=== PATIENT | female | born 1945 | race Caucasian/White ===

== ENCOUNTER 2020-09-01 08:14 | Emergency (ER) | payer MEDICARE, SELFPAY ==
[2020-09-01 08:22] VITALS: BP 160/64; PULSE 80; RESP 20; TEMP 36.7; O2SAT 99
--- NOTE | 2020-09-01 08:31 | ED.URI ---
HPI - URI/Sore Throat General Chief Complaint: Upper Respiratory Infection Stated Complaint: Sinus Time Seen by Provider: 09/01/20 08:31 Source: patient and RN notes reviewed Mode of arrival: ambulatory Limitations: no limitations History of Present Illness HPI Narrative: 75 year old female presents to [facility] care with complaints of 3 week duration of sinus congestion, pressure to face, frontal headache,rhinorrhea and ear pressure. Patient states that she has been taking Sinex and Tylenol for her symptoms with no resolution. Patient denies any known fevers or chills, states no cough or shortness of breath with respirations even and nonlabored and lungs clear to auscultation. MD elicited complaint: rhinorrhea, nasal congestion and sinus pain Onset (ago): week(s) (3) Consistency: constant Severity: moderate Pain scale (0-10): 6 Description of mucous: clear Able to tolerate fluids by mouth: Yes Relieving factors: nothing Associated symptoms: rhinorrhea, nasal congestion and ear pain Treatments prior to arrival: cold medicine Related Data Home Medications Medication Instructions Recorded Confirmed furosemide 40 mg PO DAILY 09/01/20 09/01/20 lisinopril 20 mg PO DAILY 09/01/20 09/01/20 Allergies Allergy/AdvReac Type Severity Reaction Status Date / Time No Known Drug Allergies Allergy Unknown Unknown Verified 09/01/20 08:33 Review of Systems Review of Systems: Narrative: CONSTITUTIONAL: Denies fever, chills, or sweats. EYES: Denies visual changes, redness, or discharge. ENT: Positive rhinorrhea, congestion, no sore throat, positive right otalgia, positive for sinus pressure R>L CARDIOVASCULAR: Denies chest pain, palpitations, or edema. RESPIRATORY: Denies cough or dyspnea. GASTROINTESTINAL: Denies abdominal pain, nausea, vomiting, or diarrhea. GENITOURINARY: Denies dysuria or hematuria. SKIN: Denies rash or itching. MUSCULOSKELETAL: Denies back pain, joint pain, or myalgia. NEUROLOGIC: positive right frontal headache, no numbness, or weakness. PSYCHIATRIC: Denies anxiety or depression. All systems reviewed & are unremarkable except as noted in HPI and below PMFSH Past Medical History Medical History (Updated 09/01/20 @ 08:51 by Hilaria Kimball NP) Arthritis Hypertension Surgical History Surgical History (Updated 09/01/20 @ 08:51 by Hilaria Kimball NP) History of appendectomy History of bilateral knee replacement History of gastric bypass Hx of cholecystectomy Family History Family History (Updated 09/01/20 @ 10:45 by Hilaria Kimball NP) Mother Breast cancer Social History Social History (Updated 09/01/20 @ 08:52 by Hilaria Kimball NP) Smoking status: Never smoker Substance use: never Living arrangements: with family Gender identity (if verbalized by the patient): Female Comments At time of signature, agree with nursing past medical, surgical, social and family history. There is no relevant family history pertinent to the presenting complaint Exam Narrative: Exam Narrative: GENERAL: Well-appearing, well-nourished, and in no acute distress. HEAD: Normocephalic, atraumatic. EYES: PERRLA and EOMI. ENT: Nares red and turbinates swollen R>L, clear rhinorrhea no epistaxis. frontal headache and pressure to right side of face and bilateral ears. Mucous membranes moist.TM's normal with adequate light reflex, throat red with no tonsil enlargement or lesions, post nasal drainage noted to back of throat. NECK: Supple, no lymphadenopathy CHEST: Clear to auscultation. No respiratory distress.SAO2 99% on room air. HEART: Regular rate and rhythm. No murmur heard. Normal peripheral pulses. ABDOMEN: Soft, nontender, nondistended, normal active bowel sounds. EXTREMITIES: Normal range of motion. No edema. SKIN: Warm, dry, no rash. NEURO: No focal deficits. Alert and oriented x3. Course Vital Signs Vital signs: Vital Signs Temperature 36.7 C 09/01/20 08:22 Pulse Rate 80 09/01/20 08:22
== END 2020-09-01 08:55 | disposition home or self-care (01) ==
PROVIDERS: Emergency Provider Registered Nurse; PCP Internal Medicine
DX: J32.9 Chronic sinusitis, unspecified (principal); Z96.653 Presence of artificial knee joint, bilateral; Z98.84 Bariatric surgery status; M19.90 Unspecified osteoarthritis, unspecified site; I10 Essential (primary) hypertension
CPT/HCPCS: 99213; G0463

== ENCOUNTER 2021-03-16 08:05 | Emergency (ER) | payer MEDICARE, SELFPAY ==
--- NOTE | 2021-03-16 08:07 | ED.SKABFB ---
HPI - Skin/Abscess/Foreign Bdy General Chief complaint: Skin/Abscess/Foreign Body Stated complaint: rash Time Seen by Provider: 03/16/21 08:07 Source: patient and RN notes reviewed History of Present Illness HPI narrative: Patient is a 76-year-old female who presents the urgent care with complaints of poison gurmeet to the right arm, left arm and left leg. Patient states that she was pulling weeds yesterday and believes that she had may have came in contact with something then. Patient states that she has been using [id number] clear cream and Benadryl without any relief for 1 day. Patient states that it typically travels all over her body if she does not get a steroid . Patient did not call her doctor. No other acute complaints. No acute distress noted. Patient aware of the plan of care. Some parts of this dictation were generated by voice recognition software and may contain typographical and/or grammatical inaccuracies. Related Data Home Medications Medication Instructions Recorded Confirmed furosemide 40 mg PO DAILY 09/01/20 03/16/21 lisinopril 20 mg PO DAILY 09/01/20 03/16/21 Allergies Allergy/AdvReac Type Severity Reaction Status Date / Time No Known Drug Allergies Allergy Unknown Unknown Verified 09/01/20 08:33 Review of Systems Review of Systems: Narrative: CONSTITUTIONAL: Denies fever, chills, or sweats. EYES: Denies visual changes, redness, or discharge. ENT: Denies rhinorrhea, congestion, sore throat, or otalgia. CARDIOVASCULAR: Denies chest pain, palpitations, or edema. RESPIRATORY: Denies cough or dyspnea. GASTROINTESTINAL: Denies abdominal pain, nausea, vomiting, or diarrhea. GENITOURINARY: Denies dysuria or hematuria. SKIN: Reports of itchy burning rash to right upper arm, left lower arm and left thigh MUSCULOSKELETAL: Denies back pain, joint pain, or myalgia. NEUROLOGIC: Denies headache, numbness, or weakness. All other systems reviewed are negative, except as documented in HPI. [facility] Past Medical History Medical History (Updated 03/16/21 @ 08:25 by HAYLEE Rodriguez) Arthritis Hypertension Surgical History Surgical History (Updated 09/01/20 @ 08:51 by Hilaria Kimball NP) History of appendectomy History of bilateral knee replacement History of gastric bypass Hx of cholecystectomy Family History Family History (Updated 09/01/20 @ 10:45 by Hilaria Kimball NP) Mother Breast cancer Social History Social History (Updated 09/01/20 @ 08:52 by Hilaria Kimball NP) Smoking status: Never smoker Substance use: never Gender identity (if verbalized by the patient): Female Comments At the time of my signature, I reviewed and agree with the nursing past medical, surgical, social, and family history. There is no relevant family history pertinent to the patient complaint. Exam Narrative: Exam Narrative: GENERAL: This is a well-nourished, well-developed patient, in no apparent distress. HEAD: normocephalic, atraumatic. EYES: PERRL. Sclera clear/white. Vision is grossly intact. EARS: External ears normal NOSE: External nose normal with no obvious nasal discharge, nares without redness, no rhinorrhea. THROAT: Mucous membranes moist NECK: Neck supple CARDIOVASCULAR: Regular rate and rhythm without murmurs, gallops, or rubs. RESPIRATORY: Clear to auscultation. Breath sounds equal bilaterally. No wheezes, rales, or rhonchi. GASTROINTESTINAL: Abdomen soft, non-tender, nondistended. Bowel sounds are active. No hepato-splenomegaly, or palpable masses. No guarding. SKIN: Scattered clusters of pruritic vesicular dermatitis noted to the right upper arm, left lower arm and left thigh NEURO: awake, alert, and oriented to person, place and time. There were no obvious focal neurologic abnormalities. EXTREMITIES: No clubbing, cyanosis, or edema. Course Vital Signs Vital signs: Vital Signs Temperature 98.5 F 03/16/21 08:18 Pulse Rate 79 03/16/21 08:18 Respiratory Rate 18
[2021-03-16 08:18] VITALS: BP 163/62; PULSE 79; RESP 18; TEMP 36.9; O2SAT 100
== END 2021-03-16 08:42 | disposition home or self-care (01) ==
PROVIDERS: Emergency Provider Nurse Practitioner Family; PCP Internal Medicine
DX: L23.7 Allergic contact dermatitis due to plants, except food (principal); M19.90 Unspecified osteoarthritis, unspecified site; I10 Essential (primary) hypertension; Z96.653 Presence of artificial knee joint, bilateral; Z98.84 Bariatric surgery status
CPT/HCPCS: 99212; 99213; G0463

== ENCOUNTER 2023-09-21 08:17 | Emergency (ER) | payer MEDICARE, OTHER, SELFPAY ==
[2023-09-21 08:26] VITALS: BP 154/68; PULSE 69; RESP 20; TEMP 36.4; O2SAT 97
--- NOTE | 2023-09-21 09:00 | ED.GENADULT ---
HPI - General Adult General Chief complaint: Urogenital-Female Stated complaint: poss Bladder infection Source: patient Mode of arrival: ambulatory Limitations: no limitations History of Present Illness HPI narrative: Patient presents for evaluation of urinary symptoms. Symptom onset yesterday. She reports urinary frequency, urgency, incomplete emptying, dysuria, and suprapubic discomfort. No fevers, chills, nausea, vomiting, low back pain or hematuria. She believes she has urinary tract infection. Related Data Home Medications Medication Instructions Recorded Confirmed furosemide 40 mg tablet 40 mg PO DAILY 09/01/20 09/21/23 lisinopril 20 mg tablet 20 mg PO DAILY 09/01/20 09/21/23 famotidine 20 mg tablet 20 mg PO DAILY 09/21/23 09/21/23 Allergies Allergy/AdvReac Type Severity Reaction Status Date / Time No Known Drug Allergies Allergy Unknown Unknown Verified 09/21/23 09:00 Review of Systems Review of Systems: CONSTITUTIONAL: Denies fever, chills, or sweats. EYES: Denies visual changes, redness, or discharge. ENT: Denies rhinorrhea, congestion, sore throat, or otalgia. CARDIOVASCULAR: Denies chest pain, palpitations, or edema. RESPIRATORY: Denies cough or dyspnea. GASTROINTESTINAL: Denies abdominal pain, nausea, vomiting, or diarrhea. GENITOURINARY: Reports urinary frequency, urgency, dysuria, incomplete emptying and suprapubic pressure. Denies hematuria. SKIN: Denies rash or itching. MUSCULOSKELETAL: Denies back pain, joint pain, or myalgia. NEUROLOGIC: Denies headache, numbness, dizziness, or weakness. PSYCHIATRIC: Denies anxiety or depression. [facility] Past Medical History Medical History Arthritis Hypertension Surgical History Surgical History History of appendectomy History of bilateral knee replacement History of gastric bypass Hx of cholecystectomy Family History Family History Mother Breast cancer Social History Social History Smoking status: Never smoker Substance use: never Living arrangements: with family Gender identity (if verbalized by the patient): Female Exam Narrative: GENERAL: Well-appearing, well-nourished, and in no acute distress. HEAD: Normocephalic, atraumatic. EYES: PERRLA and EOMI. ENT: Nares clear, no rhinorrhea or epistaxis. Mucous membranes moist. Oropharynx without tonsillar hypertrophy exudate or other lesions. Bilateral TMs pearly dudley nonbulging NECK: Supple. No adenopathy or masses. No carotid bruits or JVD CHEST: Clear to auscultation. No respiratory distress. No wheezes rales or rhonchi HEART: Regular rate and rhythm. No murmur heard. Normal peripheral pulses. ABDOMEN: Soft, nontender, nondistended, normal active bowel sounds. EXTREMITIES: Normal range of motion. No edema. SKIN: Warm, dry, no rash. NEURO: No focal deficits. Alert and oriented x3. PSYCH: Normal mood and affect. Course Course Emergency Course: This is a 78-year-old female who presented for evaluation of urinary symptoms. She has trace leukocytes in urine today. Will treat with Bactrim and pyridium. Increase hydration. Follow up with primary provider. Go to the ER for worsening symptoms. Pt in agreement with plan of care. Level of Care: Express Care Visit Vital Signs Vital signs: Vital Signs Temperature 36.4 C 09/21/23 08:26 Pulse Rate 69 09/21/23 08:26 Respiratory Rate 20 09/21/23 08:26 Blood Pressure 154/68 H 09/21/23 08:26 Pulse Oximetry 97 09/21/23 08:26 Oxygen Delivery Room Air 09/21/23 08:26 Temperature 36.4 C 09/21/23 08:26 Pulse Rate 69 09/21/23 08:26 Respiratory Rate 20 09/21/23 08:26 Blood Pressure 154/68 H 09/21/23 08:26 Pulse Oximetry 97 09/21/23 08:26 Oxygen Deliver
== END 2023-09-21 09:00 | disposition home or self-care (01) ==
PROVIDERS: Emergency Provider Nurse Practitioner; PCP Internal Medicine
DX: N30.00 Acute cystitis without hematuria (principal); M19.90 Unspecified osteoarthritis, unspecified site; I10 Essential (primary) hypertension; Z96.653 Presence of artificial knee joint, bilateral; Z98.84 Bariatric surgery status
CPT/HCPCS: 81003; 87086; 99213; G0463

== ENCOUNTER 2025-01-07 08:08 | Emergency (ER) | payer MEDICARE, OTHER, SELFPAY ==
--- OUTSIDE RECORDS SUMMARY | 2025-01-07 08:09 | XMS_ITS | Clinical Summary ---
Author Organization [facility] Address [address] [place] [address] Phone Care Team Providers Care Pipe Installer Name Role Phone Arsalan Baker MD Primary Care Provider Allergies Active Allergy Reactions Criticality Noted Date Comments Qyqdfnrpee-Fqneadle-Qakumrknv Rash 2020 Medications fish oil-omega-3 fatty acids 1000 MG Capsule Take 1,000 mg by mouth. Active famotidine (PEPCID) 20 MG Tablet Take 1 Tablet by mouth every evening. 90 Tablet 1 07/20/2024 Active furosemide (LASIX) 40 MG Tablet Take 1 Tablet by mouth daily. 90 Tablet 1 07/20/2024 Active lisinopril (PRINIVIL, ZESTRIL) 20 MG TabletIndication s:Essential hypertension, benign Take 1 Tablet by mouth daily. 90 Tablet 1 07/20/2024 Active Active Problems Problem Noted Date Diagnosed Date Hyperglycemia 07/20/2024 GERD without esophagitis 06/17/2022 Mixed hyperlipidemia 06/13/2021 Bilateral lower extremity edema 08/09/2020 Senile osteoporosis 08/24/2013 Presence of left artificial knee joint 3 Idiopathic osteoarthritis 03/10/2013 Essential hypertension, benign 02/19/2011 Immunizations Immunization Administration Dates Next Due Covid-19, Mrna, Lnp-s, PF, 5 0 mcg/0.25 mL dose (Moderna) 12/24/2021 Influenza Vaccine 09/17/2017 Influenza Vaccine greater than 3 yrs 11/16/2022 Influenza Vaccine, Quadrivalent, PF 06/17/2022 Influenza, High-dose, Quadrivalent 05/19/2023,,07/12/2020 Influenza, high-dose, trivalent, PF 05/04/2024,0 05/07/2021,07/12/2020 Pneumococcal Vaccine - 13 Valent 09/16/2011 Pneumococcal Vaccine Adult - 23 Valent Pneumococcal conjugate PCV20 , polysaccharide [id number] conjugate, adjuvant, PF 05/04/2024 RSV, Recombinant, Protein Page bunit Rsvpref, Adjuvant Recon (Arexvy) 06/08/2024 TD VACCINE 12/11/2020 Zoster Vaccine Recombinant 05/24/2019,02/17/2019 Family History Medical History Relation Name Comments Cancer Father Breast Cancer Mother Cancer Mother Relation Name Status Comments Father Mother Social History Tobacco Use Types Packs/Day Years Used Date Smoking Tobacco: Never Passive Smoke Exposure: Never Smokeless Tobacco: Never Tobacco Cessation:Counseling Given: No Alcohol Use Standard Drinks/Week Comments Never 0 (1 standard drink = 0.6 oz pur e alcohol) Yodo1 Answer Date Recorded In the past 12 months has [employer], oil, or water [employer] threatened to shut off services in your home? No 12/17/2023 Social Connection and Isolat ion Panel [NHANES] Answer Date Recorded In a typical week, how many times do you talk on the phone with family, friends, or neighbors? More than three times a week 12/17/2023 How often do you get togethe r with friends or relatives? More than three times a week 12/17/2023 How often do you attend chur or druze services? Never 12/17/2023 Do you belong to any clubs o r organizations such as alevism groups, unions, fraternal or athletic groups, or school groups? No 12/17/2023 How often do you attend meet ings of the clubs or organizations you belong to? Never 12/17/2023 Are you , , di vorced, , never , or living with a partner? 12/17/2023 AUDIT-C Answer Date Recorded Q1: How often do you have a drink containing alcohol? Never 12/17/2023 Q2: How many drinks containi ng alcohol do you have on a typical day when you are drinking? Patient does not drink Q3: How often do you have si x or more drinks on one occasion? Never 12/17/2023 Overall Financial Resource Strain (CARDIA) Answe r Date Recorded How hard is it for you to pa y for the very basics like food, housing, medical care, and heating? Not hard at all 12/17/2023 PHQ-2 Answer Date Recorded Total Score - Questions 1-9 0 11/24 [facility] - Occupational Stress Questionnaire Answer Date Recorded Do you feel stress - tense, restless, nervous, or anxious, or unable to sleep at night because your mind is troubled all the time - these days? Not at all 12/17/2023 Exercise Vital Sign Answer Date Recorde d On average, how many days pe r week do you engage in moderate to strenuous exercise (like a brisk walk)? 0 days 12/17/2023 On average, how many minutes do you engage in exercise at this level? 0 min 12/17/2023 Hunger Vital Sign Answer Date Recorded Within the past 12 months, y ou worried that your food would run out before you got the money to buy more. Never true 12/17/19 24 Within the past 12 months, t he food you bought just didn't last and you didn't have money to get more. Never true 12/17/2023 PRAPARE - Transportation Answer Date Re corded In the past 12 months, has l ack of transportation kept you from medical appointments or from getting medications? No 11/24 In the past 12 months, has l ack of transportation kept you from meetings, work, or from getting things needed for daily living? No 12/17/2023 Housing Stability Vital Sign Answer Guevara e Recorded In the last 12 months, was t here a time when you were not able to pay the mortgage or rent on time? No 12/17/2023 In the last 12 months, how many places have you lived? 2 12/17/2023 In the last 12 months, was t here a time when you did not have a steady place to sleep or slept in a nursing home (including now)? 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 Oxygen Saturation 100% 08/30/2024 6: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 Inhaled Oxygen Concentration - - Weight 61.2 kg (135 lb) 08/30/2024 6: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 Height 165.1 cm (5' 5 ) 08/30/2024 6: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 Body Mass Index 22.47 08/30/2024 6: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 Plan of Treatment Upcoming Encounters Date Type Department Care Team (Late st Contact Info) Description 01/18/2025 8:45 AM CDT Office Visit [facility] - Internal Medicine - [place] [address] [place] [address] Arsalan Baker MD [address] [facility] [place] [address] Health Maintenance Due Date Last Done Comments Hepatitis C Virus (HCV) Screening 1945 TdaP Immunization 1945 DEXA Bone Density 11/05/2019 11/04/2017 SARS-COV-2 Immunization ( season) 2024 05/04/2024, 05/19/2023, 12/24/2021, Additional history exists Zoster Immunization Completed 05/24/2019, 9 DTaP/Tdap/Td Immunization Discontinued 12/11/2020 Cologuard Discontinued 12/15/2020 Colorectal Cancer Screening Discontinued Mammogram Discontinued 02/25/2024, 01/24, 02/14/2022, Additional history exists Influenza Immunization Completed , 05/19/2023, 11/16/2022, Additional history exists Pneumococcal Immunization (50+ years) Completed 05/04/2024, 06/13/2021, 09/16/2011 Pneumococcal Immunization Combined Discontinued 05/04/2024, 06/13/2021, 09/16/2011 Respiratory Syncytial Virus (RSV) Immunization (Adult) Completed 06/08/2024, 05/04/2024 Colonoscopy High Risk Discontinued Colonoscopy Discontinued Hepatitis B Immunization Aged Out No longer eligible based on patient's age to complete this topic Immunochemical Fecal Occult Blood Discontinued Meningococcal Immunization (ACWY) Aged Out No longer eligible based on patient's age to complete this topic Rotavirus Immunization Aged Out No lo nger eligible based on patient's age to complete this topic Procedures Procedure Name Priority Date/Time Associated Diagnosis Comments KAROLYN SCREENING BILATERAL DIGITAL W CAD W NORA Routine 02/25/2024 9:19 AM CDT Encounter for screening mammogram for malignant neoplasm of breast COLOGUARD Routine 12/15/2020 11:41 AM CDT Screening for colorectal cancer [facility] BONE DENSITOMETRY AXIAL SKELETON Routine 11/04/2017 12:16 PM CDT Asymptomatic menopausal state from Last 3 Months or Most Recently Relevant to Health Maintenance Results * KAROLYN SCREENING BILATERAL DIGITAL W CAD W NORA (02/25/2024 9:19 AM CDT) Anatomical Region Laterality Modality breast Bilateral Mammography 02/25/2024 9:24 AM CDT Narrative 02/27/2024 9:55 AM CDT - KAROLYN SCREENING BILATERAL DIGITAL W CAD W NORA BILATERAL DIGITAL SCREENING MAMMOGRAM 3D/2D WITH CAD WITH CLEAVAGE MEDIOLATERAL OBLIQUE CRANIOCAUDAL: 02/25/2024 The study was acquired using digital technology and interpreted from soft copy. Current study was also evaluated with ICAD version 7.2. 2D digital mammographic views, as well as 3D digital tomosynthesis were performed in the CC and MLO projections. CLINICAL: Routine screening. Patient has no complaints. She reports a weight increase of 15 pounds. Personal history of skin cancer. Mother with premenopausal breast cancer. COMPARISONS: Comparison is made to exams dated: 02/17/2023, 02/14/2022, and 02/12/2021 [facility]. BREAST TISSUE:There are scattered fibroglandular densities in both breasts. FINDINGS: There is a benign appearing focal asymmetry in the left breast. There also are benign appearing lymph nodes in both breasts. Additionally, there are benign appearing vascular calcifications in both breasts. No significant masses, calcifications, or other findings are seen in either breast. There has been no significant interval change. IMPRESSION: BI-RAD 2 BENIGN There is no mammographic evidence of malignancy. A 1 year screening mammogram is recommended. A letter will be sent to the patient with these results. The patient will be entered into a reminder system with a target due date of 1 year for her next screening exam. Electronically signed by: Jimmy kilpatrick/violeta:02/25/2024 19:14:34 Leaf Fat Scraper(s): RT Odin(R)(M), [facility] letter sent: Normal Exam Reading location: [facility] BI-RADS: 2 Benign Procedure Note Jimmy Lorenz MD - 02/27/2024 - KAROLYN SCREENING BILATERAL DIGITAL W CAD W NORA BILATERAL DIGITAL SCREENING MAMMOGRAM 3D/2D WITH CAD WITH CLEAVAGE MEDIOLATERAL OBLIQUE CRANIOCAUDAL: 02/25/2024 The study was acquired using digital technology and interpreted from soft copy. Current study was also evaluated with ICAD version 7.2. 2D digital mammographic views, as well as 3D digital tomosynthesis were performed in the CC and MLO projections. CLINICAL: Routine screening. Patient has no complaints. She reports a weight increase of 15 pounds. Personal history of skin cancer. Mother with premenopausal breast cancer. COMPARISONS: Comparison is made to exams dated: 02/17/2023, 02/14/2022, and 02/12/2021 [facility]. BREAST TISSUE:There are scattered fibroglandular densities in both breasts. FINDINGS: There is a benign appearing focal asymmetry in the left breast. There also are benign appearing lymph nodes in both breasts. Additionally, there are benign appearing vascular calcifications in both breasts. No significant masses, calcifications, or other findings are seen in either breast. There has been no significant interval change. IMPRESSION: BI-RAD 2 BENIGN There is no mammographic evidence of malignancy. A 1 year screening mammogram is recommended. A letter will be sent to the patient with these results. The patient will be entered into a reminder system with a target due date of 1 year for her next screening exam. Electronically signed by: Jimmy kilpatrick/violeta:02/25/2024 19:14:34 Leaf Fat Scraper(s): RT Odin(Tatianna)(M), [facility] letter sent: Normal Exam Reading location: [facility] BI-RADS: 2 Benign Dm Alvarado IMG MAMMO ORDERABLES Final Resul t * COLOGUARD (12/15/2020 11:41 AM CDT) Cologuard Negative Not Applicable [facility] [employer] [facility] Comment: A negative result indicates a low likelihood that a colorectal cancer (CRC) or an advanced adenoma (adenomatous polyps with more advanced pre-malignant features) is present. The chance that a person with a negative Cologuard test has a colorectal cancer is less than 1 in 1500 (negative predictive value >99.9%) or has an advanced adenoma is less than 5.3% (negative predictive value 94.7%). These data are based on a prospective cross-sectional screening study of 10,000 individuals at average risk for colorectal cancer who were screened with both Cologuard and colonoscopy. (Anel T. et al, N Engl J Med 2014;370(14):6836-3411) The normal value (reference range) for this assay is negative. COLOGUARD RE-SCREENING RECOMMENDATION: Periodic routine colorectal cancer screening is an important part of preventive healthcare for asymptomatic persons at average risk for colorectal cancer. Following a negative Cologuard result, the [place] Cancer Society and U.S. Multi-Society Task Force screening guidelines recommend a Cologuard re-screening interval of 3 years. References: [place] [employer] Society (ACS). Colorectal cancer prevention and early detection. [place], [place]: [place] [employer] Society; [updated 2015Dec 16]. https://www.cancer.org/cancer/cbykt-wwbmiv-xcagdi/odzoqizzh-xqywjkuaf-uqeeyfu/ acs-recommendations.html. Accessed April 24, 2018; Jerry GONZALEZ, Sabine ENAMORADO, Caden MTZ, Colorectal Cancer Screening: Recommendations for Physicians and Patients from the U.S. Multi-Society Task Force on Colorectal Cancer Screening, Am J Gastroenterology 2017; 112:5523-2082. TEST TYPE: Composite algorithmic analysis of stool DNA-biomarkers with hemoglobin immunoassay. Quantitative values of individual biomarkers are not reportable and are not associated with individual biomarker result reference ranges. PRECAUTIONS AND LIMITATIONS: Cologuard is intended for colorectal cancer screening of adults of either sex, 45 years or older, who are at average-risk for colorectal cancer (CRC). Cologuard has been approved for use by the U.S. FDA. Cologuard may produce a false negative or false positive result. A negative Cologuard test result does not guarantee the absence of CRC or advanced adenoma (pre-cancer). Patients with a negative Cologuard test result should be advised to continue participating in a colorectal cancer screening program. The screening interval for Cologuard is currently recommended at an interval of every 3 years by the [place] [employer] Society and U.S. Multi-Society Task Force. A false positive result occurs when Cologuard produces a positive result, even though a colonoscopy may not find colorectal cancer or precancerous polyps. The performance of Cologuard has been established in a cross sectional study (i.e., single point in time) of average-risk adults aged 50-84. Cologuard performance in patients ages 45 to 49 years was estimated by sub-group analysis of near-age groups. Cologuard performance data in a 10,000 patient pivotal study using colonoscopy as the reference method can be accessed at the following location: www.[employer]/results. Additional description of the Cologuard test process, warnings and precautions can be found at www.cologuardtest.com. Rx only. Stool specimen (specimen) 12/15/2020 11:41 AM CDT 12/16/2020 3:02 PM CDT us Arsalan Baker MD BODY FLUIDS & STOOLS BRIGITTE ROJAS Final Result [facility] [employer] [address] [place] [address], [place] [phone] [facility] [address] [place] [address] * KAROLYN BONE DENSITOMETRY AXIAL SKELETON (11/04/2017 12:16 PM CDT) Anatomical Region Laterality Modality BODY N/A Other 11/04/2017 12:4 4 PM CDT Impressions 11/04/2017 12:47 PM CDT IMPRESSION: Osteoporosis. Bone mineral density: Normal (T-score above or = -1.0) Low bone mass (T-score between -1.0 and -2.5) replaces the previously used term osteopenia Osteoporosis (T-score = or below -2.5) Medical evaluation for secondary causes of low bone mineral density may be appropriate. FRAX is a World Health Organization validated fracture risk assessment tool that calculates a person's 10 year probability of a major osteoporosis related fracture and hip fracture. According to the National Osteoporosis Foundation guidelines, postmenopausal women and men age 50 or older with low bone mass and a 10 year probability of a major osteoporosis related fracture = or greater than 20% or a 10 year probability of a hip fracture = or greater than 3% should be considered for treatment. For further information, including treatment recommendations, please refer to the 2013 ISCD Official Positions (http://www.iscd.org) and the NOF's Clinician's Guide to Prevention and Treatment of Osteoporosis (http://www.nof.org/professionals/clinical-guidelines) Narrative 11/04/2017 12:47 PM CDT EXAM DESCRIPTION: [facility] BONE DENSITOMETRY AXIAL SKELETON COMPLETED DATE/TIME: 11/04/2017 12:16 pm REASON FOR STUDY: 72 y/o year old postmenopausal white female with given history of osteoporosis screening. Side Laster Tack/Model: Clone (S/N [id number]) CLINICAL INFORMATION: Current height: 65 inches Maximum height: 67 inches Weight: 180 pounds Risk factors: Previous fracture as an adult. Use of antacids for more than 6 months. Has taken vitamin-D, calcium, multivitamin. Does not perform regular weight-bearing exercise. Regularly consumes dairy products. Drinks caffeinated beverages. COMPARISON: August 23, 2013 FINDINGS: AP LUMBAR SPINE L1-L4: Total BMD is 1.099 g/cm2 T-score is -0.8 Most recent prior BMD was 1.059 g/cm2 Dissimilar scan types or analysis methods precludes assessment for calculating a significant change. LEFT HIP: Current Total BMD is 0.703 g/cm2 T-score is -2.4 Most recent prior Total BMD was 0.704 g/cm2 Dissimilar scan types or analysis methods precludes assessment for calculating a significant change. Current femoral neck BMD is 0.695 g/cm2 T-score is -2.5 THIS IS AN ELECTRONICALLY VERIFIED FINAL REPORT 11/04/2017 12:44 PM - Electronically signed by Isma Cervantes M.D. RB: SEGUN Report ID: [id number] Reading Location: [id number] Procedure Note Isma Cervantes MD - 11/04/2017 EXAM DESCRIPTION: [facility] BONE DENSITOMETRY AXIAL SKELETON COMPLETED DATE/TIME: 11/04/2017 12:16 pm REASON FOR STUDY: 72 y/o year old postmenopausal white female with given history of osteoporosis screening. Side Laster Tack/Model: Clone (S/N [id number]) CLINICAL INFORMATION: Current height: 65 inches Maximum height: 67 inches Weight: 180 pounds Risk factors: Previous fracture as an adult. Use of antacids for more than 6 months. Has taken vitamin-D, calcium, multivitamin. Does not perform regular weight-bearing exercise. Regularly consumes dairy products. Drinks caffeinated beverages. COMPARISON: August 23, 2013 FINDINGS: AP LUMBAR SPINE L1-L4: Total BMD is 1.099 g/cm2 T-score is -0.8 Most recent prior BMD was 1.059 g/cm2 Dissimilar scan types or analysis methods precludes assessment for calculating a significant change. LEFT HIP: Current Total BMD is 0.703 g/cm2 T-score is -2.4 Most recent prior Total BMD was 0.704 g/cm2 Dissimilar scan types or analysis methods precludes assessment for calculating a significant change. Current femoral neck BMD is 0.695 g/cm2 T-score is -2.5 THIS IS AN ELECTRONICALLY VERIFIED FINAL REPORT 11/04/2017 12:44 PM - Electronically signed by Isma Cervantes M.D. RB: SEGUN Report ID: [id number] Reading Location: [id number] IMPRESSION: Osteoporosis. Bone mineral density: Normal (T-score above or = -1.0) Low bone mass (T-score between -1.0 and -2.5) replaces the previously used term osteopenia Osteoporosis (T-score = or below -2.5) Medical evaluation for secondary causes of low bone mineral density may be appropriate. FRAX is a World Health Organization validated fracture risk assessment tool that calculates a person's 10 year probability of a major osteoporosis related fracture and hip fracture. According to the National Osteoporosis Foundation guidelines, postmenopausal women and men age 50 or older with low bone mass and a 10 year probability of a major osteoporosis related fracture = or greater than 20% or a 10 year probability of a hip fracture = or greater than 3% should be considered for treatment. For further information, including treatment recommendations, please refer to the 2013 ISCD Official Positions (http://www.iscd.org) and the NOF's Clinician's Guide to Prevention and Treatment of Osteoporosis (http://www.nof.org/professionals/clinical-guidelines) Dm Alvarado [facility] [place] DEXA ORDERABLES Final Result from Last 3 Months or Most Recently Relevant to Health Maintenance Insurance MEDICARE [facility] Care Teams Pipe Installer Relationship Specialty Start Date End Date Arsalan Baker MD [address] [place] [address] PCP - General Internal Medicine 09/26/15
--- OUTSIDE RECORDS SUMMARY | 2025-01-07 08:09 | XMS_ITS | Encounter Summary ---
Author Organization [facility] Health Address [address] [place] [address] Care Team Providers Care Lumite Injector Name Role Phone Demarcus Flores MD Unavailable [phone] Encounter Details Date Type Department Care Team (Late st Contact Info) Description 02/11/2023 Lab Requisition [facility] - DermPath Lab [address] [place] [id number] Dm Vigil MD 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 Answer Date of Assessment Author No 04/02/2018 11:59 AM CDT Croy Welch RN * Is person blind or have serious difficulty seeing? Answer Date of Assessment Author No 04/02/2018 11:59 AM MELANIAT Cory Welch RN * Does person have serious difficulty walking/climbing stairs? Answer Date of Assessment Author Yes 04/02/2018 11:59 AM MELANIAT Cory Welch RN * Does person have difficulty dressing/bathing? Answer Date of Assessment Author No 04/02/2018 11:59 AM CDT Cory Welch RN * Does person have difficulty doing errands alone? Answer Date of Assessment Author No 04/02/2018 11:59 AM CDT Cory Welch RN documented as of this encounter Mental Status * Does person have difficulty concentrating/remembering/making decisions? Answer Entry Date Author No 04/02/2018 11:59 AM CDT Cory Welch RN documented in this encounter Plan of Treatment Not on file documented as of this encounter Procedures Procedure Name Priority Date/Time Associated Diagnosis Comments DERMATOPATHOLOGY Routine 02/11/2023 12:0 0 AM CDT Malignant melanoma of left upper limb, including shoulder (CMS/HCC) [ICD-10-CM] documented in this encounter Results * DERMATOPATHOLOGY (02/11/2023 12:00 AM CDT) Case Report Dermatopathology Report Case: [id number] Authorizing Provider: Dm Vigil MD Collected: 02/11/2023 12:00 AM Ordering Location: [facility] Lab Received: 02/12/2023 11:29 AM Pathologist: Estela Redmond MD Specimen: Skin, left anterior lateral proximal upper arm 3 11:00 AM CDT DERMATOPATHOLOGY LABORATORY Final Diagnosis Specimen A. SKIN, left anterior lateral proximal upper arm: DERMAL SCAR RESIDUAL MELANOMA NOT IDENTIFIED (L90.5) 3 11:00 AM CDT DERMATOPATHOLOGY LABORATORY Clinical History Malignant melanoma Check margin 3 11:00 AM CDT DERMATOPATHOLOGY LABORATORY Gross Description Specimen A: Received is one formalin filled container labeled with the patient's name and designated left anterior lateral proximal upper arm. The specimen consists of a non-oriented ellipse of skin measuring [id number] mm. The epidermal surface is unremarkable. The margin is inked green. The 12 o'clock and 6 o'clock tips are submitted in cassette 1. The remainder of the ellipse is serially sectioned and submitted in cassette 2-6. Jar 0. 3 11:00 AM CDT DERMATOPATHOLOGY LABORATORY Microscopic Description Specimen A. SKIN, left anterior lateral proximal upper arm: There are fibroblasts and collagen bundles oriented parallel to the skin surface. There are elongated blood vessels, some of which are oriented perpendicular to the skin surface. No residual melanoma is identified. 3 11:00 AM CDT DERMATOPATHOLOGY LABORATORY Disclaimer An external and internal positive and negative controls are appropriate for the histochemical, immunohistochemical and immunofluorescence stain(s) in this case (if any), except where stated explicitly. The performance characteristics of the stain(s) cited in this report were developed and its performance characteristic determined by the Dermatopathology Laboratory at [facility], directed by Dr. Akila Kemp. These tests need not be, and therefore are not, approved by the [place] Food and Drug Administration. The tests are used for clinical purposes. Billing Codes Specimen Charges Stain Charges 08268 1 3 11:00 AM CDT DERMATOPATHOLOGY LABORATORY Embedded Images 3 11:00 AM CDT DERMATOPATHOLOGY LABORATORY Pathology/Cytolog y TISSUE SPECIMEN FROM SKIN / Unknown 02/11/2023 02/12/2023 11:29 AM CDT Dm Vigil MD LAB - PATHOLOGY/CYTOLOGY [facility]USTIN Final Result DERMATOPATHOLOGY LABORATORY [facility] - Department of Dermatology [address] [phone] documented in this encounter Visit Diagnoses Diagnosis Malignant melanoma of left upper limb, including shoulder (HCC) documented in this encounter Care Teams Lumite Injector Relationship Specialty Start Date End Date Demarcus Flores MD Orthopedic Surgery 10/15/11 documented as of this encounter
--- OUTSIDE RECORDS SUMMARY | 2025-01-07 08:09 | XMS_ITS | Clinical Summary ---
Author Organization [facility] Address [address] [place] [address] Care Team Providers Care Small Craft Operator Name Role Phone Demarcus Flores MD Unavailable [phone] Source Comments [facility],non-owned Affiliates and Associated Physician Practices is amultiple site organization consisting of ambulatory clinics and hospital sitesin [place], [place]. This disclosure is being madepursuant to the Care Everywhere program and may not contain all information available regarding this patient. Last updated 18.[facility] Allergies Active Allergy Reactions Criticality Noted Date Comments Alendronic Acid Rash Medium 03/04/2018 Medications * Be aware that medications may not be up to date on this document. Alwaysverify current medications with the patient. furosemide (LASIX) 40 MG tablet Take 40 mg by mouth once daily. Active fish oil/omega-3 fatty acids (FISH OIL) 1000 MG capsule Take 1,000 mg by mouth once daily after breakfast. Instructed patient to stop 1 week before surgery. Active calcium carbonate (CALTRATE) 600 MG tablet Take 2 Tabs by mouth daily with food. Active lisinopril (PRINIVIL; ZESTRIL) 20 MG tablet TK 1 T PO D 5 12/08/19 18 Active multivitamin daily (THERAGRAN) tablet Take 1 tablet by mouth daily with food Active iron polysaccharides (NIFEREX 150) 150 MG capsule Take 1 capsule by mouth once daily 30 capsule 04/06/20 18 Active Active Problems Problem Noted Date Diagnosed Date Status post right knee replacement 04/02/2018 Primary osteoarthritis of right knee 02/18/2018 History of left knee replacement 02/18/2018 Family History Medical History Relation Name Comments Hypertension Father Relation Name Status Comments Father Social History Tobacco Use Types Packs/Day Years Used Date Smoking Tobacco: Never Smokeless Tobacco: Never Alcohol Use Standard Drinks/Week Comments No 0 (1 standard drink = 0.6 oz pur e alcohol) Comments Unknown Sex and Gender Information Value Date Recorded Sex Assigned at Not on file 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 Gender Identity Not on file Sexual Orientation Not on file Last Filed Vital Signs Vital Sign Reading Time Taken Comments Blood Pressure 131/54 04/05/2018 7:49 AM CDT Pulse 78 04/05/2018 7:49 AM CDT Temperature 36.4 C (97.5 F) 04/05/2018 7:49 AM CDT Respiratory Rate 16 04/05/2018 7:49 AM CDT Oxygen Saturation 99% 04/05/2018 7:49 AM CDT Inhaled Oxygen Concentration - - Weight 72.6 kg (160 lb) 04/02/2018 6:51 AM CDT Height 165.1 cm (5' 5 ) 04/02/2018 6:51 AM CDT Body Mass Index 26.63 04/02/2018 6:51 AM CDT Plan of Treatment Health Maintenance Due Date Last Done Comments BONE DENSITY TESTING 1945 MEDICARE AWV 12 MONTHS 1945 HEPATITIS C SCREENING 01/04/1964 DTAP/TDAP/TD VACCINES (1 - Tdap) 1965 PNEUMOCOCCAL VACCINE 50+ (1 of 1 - PCV) 01/09/1996 ZOSTER VACCINE (1 of 2) 01/09/1996 Respiratory Syncytial Virus (RSV) Vaccine Pt: or over 60 yrs (1 - 1-dose 75+ series) 2021 COVID-19 VACCINE ( - 2023-2 5 season) 2024 DEPRESSION SCREENING 08/25/2024 INFLUENZA VACCINE (Season Ended) 2025 HEPATITIS B VACCINE Aged Out No longe r eligible based on patient's age to complete this topic HIB VACCINE Aged Out No longer eligi ble based on patient's age to complete this topic HPV VACCINE Aged Out No longer eligi ble based on patient's age to complete this topic MENINGOCOCCAL (Group B) VACC INE SHARED DECISION-MAKING Aged Out No longer eligibl e based on patient's age to complete this topic MENINGOCOCCAL GROUPS A/C/Y/W VACCINE Aged Out No longer eligible b ased on patient's age to complete this topic Medical Devices Implanted Type Area Tub Wash Operator Device Identifier Shelf Expiration Date Model / Serial / Lot Cmnt Bone Cblt 40gm Hvisc Strl Implanted:Qty: 1 on 04/02/2018 by Demarcus Flores MD at [facility] Right: Knee [employer] 05/24/2019 [id number] / / [id number] Cmpnt Fem Kn Rt Cr Cmnt Prm Vngrd Intlk Implanted:Qty: 1 on 04/02/2018 by Demarcus Flores MD at [facility] Right: Knee [employer] 01/03/2028 [id number] / / [id number] Cmpnt Ptlr 28mm 1 Pg Wire Ascnt Arcm Kn Implanted:Qty: 1 on 04/02/2018 by Demarcus Flores MD at [facility] Right: Knee [employer] 03/05/2023 [id number] / / [id number] Tray Tib 67mm Kn Cocr I Beam Implanted:Qty: 1 on 04/02/2018 by Demarcus Flores MD at [facility] Right: Knee [employer] 02/20/2028 [id number] / / [id number] Brng [id number] Vngrd Arcm Kn Ant Stab Implanted:Qty: 1 on 04/02/2018 by Demarcus Flores MD at [facility] Right: Knee [employer] 02/12/2023 [id number] / / [id number] Insurance MEDICARE MEDICARE SUPPLEMENT [facility] MEDIC[facility] Advance Directives * Full Code (Latest Code Status on File) Date Activated Date Inactivated Comments 04/02/2018 11:21 AM 04/05/2018 11:32 AM * FULL RESUSCITATION Date Activated Date Inactivated Comments 11/27/2011 12:29 PM 12/01/2011 12:18 AM Care Teams Small Craft Operator Relationship Specialty Start Date End Date Demarcus Flores MD Orthopedic Surgery 10/15/11
--- OUTSIDE RECORDS SUMMARY | 2025-01-07 08:10 | XMS_ITS | Data Portability ---
Author Organization [facility] Samantha Reyna Address [address] [facility] [place] [address] Care Team Providers Care Disc Pad Plate Filler Name Role Phone ARSALAN BAKER Primary Care Provider [phone] Assessment No assessment recorded. Plan of Treatment Reminders Order Date Submit Date Provider Last Modified By Organization Details Last Modified Time Details Appointments None record ed. Lab candid a paraps ilosis DNA, genita l 2021 022 [facility], [address] [place] [address], [address], [place], [address], 2 07:24:41 bacter ial vagino sis panel, vagina l 2021 022 [facility], [address] [place] [address], [address], [place], [address], 2 07:24:41 urinal ysis, dipsti ck 2021 022 [email or web address] In-Office Order, Internal Use Only DO Not Attach Compendium DO Not Attach Compendium, Do Not Delete/merge, [id number] 10:26:20 cultur e, urine 2021 022 [facility], [address] [place] [address], [address], [place], [address], 2 07:24:39 Referral None record ed. Procedures None record ed. Surgeries None record ed. Imaging MAMMO, screen ing, digita l, bilate ral 2024 025 [facility] (Scheduling), [address] [place], [address], 5 08:14:35 MAMMO, screen ing, digita l, bilate ral 2023 024 [facility] (Scheduling), [address] [place], [address], 4 13:42:46 MAMMO, screen ing, digita l, bilate ral 2022 023 [facility] (Scheduling), [address] [place], [address], 3 14:08:23 MAMMO, screen ing, digita l, bilate ral 2021 022 [facility] (Scheduling), [address] [place], [address], 2 11:08:36 Medication Orders Bactri m DS 800 mg-160 mg tablet 2021 022 [id number], [address], [place], [place], [id number], 4 10:01:59 Patient TargetsNo targets recorded. Patient Instructions Encounter Date Encounter Id Patient Instructions Last Modified By Organization Details Last Modified Time 11/26/2021 [id number] mammogram: about this test Not available 11/26/2021 10:26:20 12/02/2022 [id number] mammogram: about this test [email or web address] Not available 12/02/2022 11:28:45 A healthy lifestyle: care instructions Not available 12/02/2022 11:28:45 12/08/2023 [id number] A healthy lifestyle: care instructions [email or web address] Not available 12/17/2023 17:45:13 mammogram: about this test [email or web address] Not available 12/08/2023 13:13:04 12/13/2024 [id number] mammogram: about this test [email or web address] Not available 12/13/2024 11:28:13 Reason for Referral None Reported. Results Created Date Observation Date Name Description Value Unit Range Abnormal Flag Note LastModifiedBy Organization Detail LastModifiedTime 11/27/19 22 11/27/2021 URINE CULTU RE, ROUTI NE urine culture, routine Final report Not Available [facility] ([facility]) [address] [place], [address], 11/28/2021 07:24:39 11/27/19 22 11/27/2021 URINE CULTU RE, ROUTI NE result 1 Commen t Cultu re shows less than 10,00 0 colon y formi ng units of bacte arielle per bev liter of urine . This colon y count is not gener ally consi dered to be clini bonny signi fican t. Not Available [facility] ([facility]) [address] [place], [address], 11/28/2021 07:24:39 11/27/19 22 11/28/2021 BACTE RIAL VAGIN OSIS, JOJO atopobium vaginae Low - 0 score Not Available [facility] ([facility]) [address] [place], [address], 11/28/2021 07:24:41 11/27/19 22 11/28/2021 BACTE RIAL VAGIN OSIS, JOJO bvab 2 Low - 0 score Not Available [facility] ([facility]) [address] [place], [address], 11/28/2021 07:24:41 11/27/19 22 11/28/2021 BACTE RIAL VAGIN OSIS, JOJO megasphaera 1 Low - 0 score Calcu late total score by zahra bonner the 3 indiv idual bacte rial vagin osis (BV) marke r score s toget her. Total score is inter prete d as follo ws: Total score 0-1: Indic ates the absen ce of BV. Total score 2: Indet ermin ate for BV. Addit ional clini kyung data shoul d be evalu ated to estab dinorah a barbara osis. Total score 3-6: Indic ates the prese nce of BV. This test was devel oped and its perfo rmanc e dena cteri stics deter mined by [facility]. It has not been clear ed or appro radha by the Food and Drug Admin istra tion. Not Available [facility] ([facility]) [address] [facility], [place], [address], 11/28/2021 07:24:41 11/27/19 22 11/28/2021 C ALBIC ANS + C GLABR HEATHER, JOJO adriana albicans, JOJO Negati ve negati ve Not Available [facility] ([facility]) [address] [facility], [place], [address], 11/28/2021 07:24:41 11/27/19 22 11/28/2021 C ALBIC ANS + C GLABR HEATHER, JOJO adriana glabrata, JOJO Negati ve negati ve Not Available [facility] ([facility]) [address] [facility], [place], [address], 11/28/2021 07:24:41 11/27/19 22 11/26/2021 urina lysis , dipst ick Leukocytes Modera te Not Available In-Office Order Internal Use Only DO Not Attach Compendium DO Not Attach Compendium, Do Not Delete/merge, 11/26/2021 09:15:45 11/27/19 22 11/26/2021 urina lysis , dipst ick Nitrite positi ve Not Available In-Office Order Internal Use Only DO Not Attach Compendium DO Not Attach Compendium, Do Not Delete/merge, 11/26/2021 09:15:45 11/27/19 22 11/26/2021 urina lysis , dipst ick Urobilinogen .2 Not Available In-Of fice Order Internal Use Only DO Not Attach Compendium DO Not Attach Compendium, Do Not Delete/merge, 11/26/2021 09:15:45 11/27/19 22 11/26/2021 urina lysis , dipst ick Protein Negati ve Not Available In-Office Order Internal Use Only DO Not Attach Compendium DO Not Attach Compendium, Do Not Delete/merge, 11/26/2021 09:15:45 11/27/19 22 11/26/2021 urina lysis , dipst ick pH 6.0 Not Available In-Office Order Internal Use Only DO Not Attach Compendium DO Not Attach Compendium, Do Not Delete/merge, 11/26/2021 09:15:45 11/27/19 22 11/26/2021 urina lysis , dipst ick Blood Hemoly zed: Trace Not Available In-Office Order Internal Use Only DO Not Attach Compendium DO Not Attach Compendium, Do Not Delete/merge, 11/26/2021 09:15:45 11/27/19 22 11/26/2021 urina lysis , dipst ick Specific [place] 1.020 Not Available In-Off ice Order Internal Use Only DO Not Attach Compendium DO Not Attach Compendium, Do Not Delete/merge, 11/26/2021 09:15:45 11/27/19 22 11/26/2021 urina lysis , dipst ick Ketone Negati ve Not Available In-Office Order Internal Use Only DO Not Attach Compendium DO Not Attach Compendium, Do Not Delete/merge, 11/26/2021 09:15:45 11/27/19 22 11/26/2021 urina lysis , dipst ick Bilirubin Negati ve Not Available In-Office Order Internal Use Only DO Not Attach Compendium DO Not Attach Compendium, Do Not Delete/merge, 11/26/2021 09:15:45 11/27/19 22 11/26/2021 urina lysis , dipst ick Glucose Negati ve Not Available In-Office Order Internal Use Only DO Not Attach Compendium DO Not Attach Compendium, Do Not Delete/merge, 11/26/2021 09:15:45 02/13/20 21 02/12/2021 MAMMO , scree kadeem, digit al, bilat eral No observ ation record ed. [facility] (Radiology) [address] [place] [address], [address], 02/23/2021 16:14:43 02/17/20 22 02/14/2022 MAMMO , scree kadeem, digit al, bilat eral No observ ation record ed. [address], [address], 02/18/2022 09:11:07 02/18/20 23 02/17/2023 MAMMO , scree kadeem, digit al, bilat eral No observ ation record ed. [address], [address], 02/17/2023 16:22:47 02/27/20 24 02/27/2024 MAMMO , scree kadeem, digit al, bilat eral No observ ation record ed. [email or web address] (Scheduling) [address] [place], [address], 02/27/2024 13:42:46 Result Notes None recorded. Problems Name Problem SNOMED Code Status Onset Date Resolution Date Notes Provider Name and Address Organization Details Recorded Time Dysuria 53580202 Active Scott Arshad DO Attn: Karine g,[address] [place], [address], [facility] 6 14:35:08 Midline cystocele 956440319 Active Scott Arshad DO Attn: Karine g,[address] [facility], [place], [address], [facility] 6 14:35:08 Problem Notes None recorded. Procedures Surgical History Date Name Laterality Status Provider Name and Address Organization Details Recorded Time 02/25/20 24 Most Recent Mammogram completed Nadia Dos Santos RN [facility] 02/27/2024 13:42:56 01/24/20 23 removal of mole of skin by excision completed Tiffanie Grimaldo MA [facility] 12/08/2023 10:04:25 08/10/20 14 Date of Last Pap Smear completed Tiffanie Grimaldo MA [facility] 11/23/2021 08:06:41 Other completed Alice Lozano MA [facility] 08/10/2014 09:31:22 Cholecystectomy completed Alice Lozano MA [facility] 07/17/2014 14:19:19 Knee Surgery completed Alice Lozano MA [facility] 07/17/2014 14:19:19 Cardiac Surgery completed Alice Lozano MA [facility] 07/17/2014 14:19:19 Other completed Maureen Jefferson MA [facility] 08/22/2015 09:13:25 Imaging Results Imaging Date Name Status LastModified by Organiz ation Details LastModified Time 02/12/2021 MAMMO, screening, digital, bilateral completed [facility] (Radiology) [address] [place] [address], [address], 02/23/2021 16:14:43 02/14/2022 MAMMO, screening, digital, bilateral completed [address], [address], 02/18/2022 09:11:07 02/17/2023 MAMMO, screening, digital, bilateral completed [address], [address], 02/17/2023 16:22:47 02/27/2024 MAMMO, screening, digital, bilateral completed [facility] (Scheduling) [address] [place] [address], [address], 02/27/2024 13:42:46 Procedure Notes None recorded. Medical Equipment None Reported. Allergies No known drug allergies Medications Name Sig Start Date Stop Date Status Note LastModified by Organization Details LastModified Time furosemide 40 mg tabs active Not Available Not Available N ot Available piroxicam 10 mg caps active Not Available Not Available N ot Available azithromyci n 250 mg tabs active Not Available Not Available Not Available hydrocodone /acetaminop hen 5-325 mgtabs active Not Available Not Available Not Available lisinopril 10 mg tabs active Not Available Not Available N ot Available amoxicillin 500 mg capsule 08/27 completed Not Available Not Available Not Available furosemide 40 mg tablet TAKE 1 TABLET BY MOUTH DAILY active Not Available Not Available No t Available azithromyci n 250 mg tablet active Not Available Not Available Not Available phenazopyri dine 200 mg tablet TAKE 1 TABLET BY MOUTH THREE TIMES DAILY 12/07 completed Not Available Not Available Not Available lisinopril 20 mg tablet TAKE 1 TABLET BY MOUTH DAILY active Not Available Not Available No t Available alendronate 70 mg tablet Take 1 tablet every week by oral route for 28 days. 11/26 completed Not Available Not Available Not Available sulfamethox azole 800 mg-trimetho prim 160 mg tablet TAKE 1 TABLET BY MOUTH EVERY 12 HOURS 12/07 completed Not Available Not Available Not Available hydrocodone 10 mg-acetamin ophen 325 mg tablet 10/16 completed Not Available Not Available Not Available amoxicillin 500 mg tablet 10/16 completed Not Available Not Available Not Available Macrobid 100 mg capsule Take 1 capsule every 12 hours by oral route. 08/27 completed Not Available Not Available Not Available amoxicillin 875 mg tablet 10/16 completed Not Available Not Available Not Available famotidine 20 mg tablet TAKE 1 TABLET BY MOUTH EVERY EVENING active Not Available Not Available No t Available cephalexin 500 mg capsule TAKE 1 CAPSULE BY MOUTH THREE TIMES DAILY FOR 7 DAYS 11/26 completed Not Available Not Available Not Available triamcinolo ne acetonide 0.1 % topical ointment 12/07 completed Not Available Not Available Not Available lisinopril 10 mg tablet 11/26 completed Not Available Not Available Not Available mupirocin calcium 2 % topical cream APPLY TOPICALLY TO THE AFFECTED AREA THREE TIMES DAILY 11/26 completed Not Available Not Available Not Available hydrocortis one 2.5 % topical cream APPLY TOPICALLY TO THE AFFECTED AREA OF LEFT HAND RASH TWICE DAILY FOR 7 DAYS 11/26 completed Not Available Not Available Not Available amoxicillin 250 mg capsule TAKE ONE CAPSULE BY MOUTH EVERY 8 HOURS UNTIL ALL TAKEN 11/26 completed Not Available Not Available Not Available piroxicam 10 mg capsule 10/01 completed Not Available Not Available Not Available furosemide 20 mg tablet TAKE 1 TABLET BY MOUTH DAILY 12/07 completed Not Available Not Available Not Available methylpredn isolone 4 mg tablets in a dose pack FOLLOW PACKAGE DIRECTION S 11/26 completed Not Available Not Available Not Available ondansetron 4 mg disintegrat ing tablet DISSOLVE ONE TABLET BY MOUTH EVERY 6 HOURS NEEDED 12/13 completed Not Available Not Available Not Available fluticasone propionate 50 mcg/actuati on nasal spray,suspe nsion SHAKE LIQUID AND USE 1 SPRAY IN EACH NOSTRIL DAILY 11/26 completed Not Available Not Available Not Available amoxicillin 875 mg-potassiu m clavulanate 125 mg tablet TAKE 1 TABLET BY MOUTH EVERY 12 HOURS. TAKE ALL MEDICATIO N 10/16 completed Not Available Not Available Not Available amoxicillin 500 mg-potassiu m clavulanate 125 mg tablet active Not Available Not Available Not Available omeprazole 12/07 completed Not Available Not Available Not Available Fluzone High-Dose Quad (PF) 240 mcg/0.7 mL IM syringe ADM 0.7ML IM UTD 11/26 completed Not Available Not Available Not Available Vitals Date Recorded Body height Body mass index (BMI) Body weight Systolic blood pressure Diastolic blood pressure Provider Name and Address Organization Details Last Updated DateTime 11/26/2021 165.1 cm 29.6 kg/m2 99649.73 g 152 mm[Hg] 72 mm[Hg] Tiffanie antonio [place] - [facility] 2 09:08:46 Date Recorded Body height Body mass index (BMI) Body weight Heart rate Systolic blood pressure Diastolic blood pressure Provider Name and Address Organization Details Last Updated DateTime 3 165.1 cm 30.6 kg/m2 18248.2 8 g 71 /min 146 mm[Hg] 75 mm[Hg] Tiffanie antonio [place] - [facility] 3 09:56:49 Date Recorded Body height Body mass index (BMI) Body weight Heart rate Systolic blood pressure Diastolic blood pressure Provider Name and Address Organization Details Last Updated DateTime 4 165.1 cm 31.1 kg/m2 01155.0 6 g 73 /min 147 mm[Hg] 78 mm[Hg] Tiffanie antonio MA [facility] 4 10:00:44 Date Recorded Body height Body mass index (BMI) Body weight Systolic blood pressure Diastolic blood pressure Provider Name and Address Organization Details Last Updated DateTime 12/13/2024 165.1 cm 22.5 kg/m2 68243.97 g 145 mm[Hg] 73 mm[Hg] Mallory FOX Mancuso [place] - [facility] 5 10:01:00 Social History Question Answer Notes LastModified by Organizat ion Details LastModified Time Tobacco Smoking Status Never Smoker Maureen [place] MA null, [facility] 08/22/2015 09:13:25 Do You Have An Advance Directive? Yes son Information not available 12/02/2022 Is Blood Transfusion Acceptable In An Emergency? Yes Information not available 12/02/2022 In The 14 Days Before Symptom Onset, Have You Had Close Contact With A Laboratory-confir med COVID-19 While That Case Was Ill? No Information not available 12/02/2022 In The 14 Days Before Symptom Onset, Have You Had Close Contact With A Person Who Is Under Investigation For COVID-19 While That Person Was Ill? No Information not available 12/02/2022 Have You Been To An Area Known To Be High Risk For COVID-19? No Information not available 12/02/2022 What Type Of Diet Are You Following? REGULAR Information not available 12/02/2022 What Is The Highest Grade Or Level Of School You Have Completed Or The Highest Degree You Have Received? [id number] Information not available 12/02/2022 Have There Been Any Changes To Your Family Or Social Situation? No Information no t available 12/02/2022 What Was The Date Of Your Most Recent Tobacco Screening? 12/13/2024 [email or web address] Information not available 12/13/2024 How Many Children Do You Have? 1 Information not available 12/02/2022 Do You Have Any Pets? No Information not available 12/02/2022 What Is Your Relationship Status? Information not available 12/02/2022 Do You Use Your Seat Belt Or Car Seat Routinely? Yes Information not available 12/02/2022 Do You Have Smoke And Carbon Monoxide Detectors In Your Home? Yes Information not available 12/02/2022 Are You Passively Exposed To Smoke? No Information no t available 12/02/2022 Do You Use Sunscreen Routinely? Yes Information not available 12/02/2022 Sex: Female Functional Status Question Answer Note LastModified by aiHit ion Details LastModified Time Are you currently employed? No Retired Information not available 12/02/2022 What is your exercise level? None Information not available 12/02/2022 Mental Status Question Answer Note LastModified by Organization D etails LastModified Time Do you feel stressed (tense, restless, nervous, or anxious, or unable to sleep at night)? [id number] Information not available 12/02/2022 Family History Relationship Description Onset Age of this Age Resolved Age Notes LastModified by Organization Details LastModified Time Mother Carcinoma of breast [email or web address] Not available 2015 11:22:02 Father Hypertensive disorder knealma Not available 2015 11:22:02 Father History of carcinoma knealma Not available 2015 11:22:02 Medical History Condition Response Coronary Artery Disease N Kidney Cyst N Blood Diseases N Hyperthyroidism N Blood disorders N Blood Transfusion N MRSA N Emphysema N Depression N COPD N Blood Clots N Pneumonia N Premature N Peripheral Arterial Disease N Edema N TIA N Headaches/Migraines N Anxiety Disorder N Obesity N Polyps N Infertility N Acid Reflux (GERD) Y Hematuria N Stroke N Neck Injury N Polio N Hospital Admission other than N Neurologic Disorder N Other Sleep Disorders N Rheumatoid Arthritis N Fibromyalgia N Abdominal Aortic Aneurysm Repair N Kidney Disease N Heart Conditions N Heart Disease/Heart Problems N Hospitalizations N Brain Tumors N Acne N Skin Problems N Eating Disorder N Meningitis N Constipation N Tuberculosis N Cerebral Palsy N Myocardial Infarction N Asthma N Substance Abuse N Peripheral Vascular Disease N Vertigo N Sleep Disorder N Cirrhosis N Pulmonary Embolism N Chicken Pox N Hematologic Disease N Flomax Use Past or Present N Anxiety/Depression N Thyroid Disease N Colon Cancer N Lung Disease N Glaucoma N Developmental or Behavioral Disorders N Bipolar N Pacemaker N Diverticulitis/Diverticulosis N Orthopedic Problems N Anesthesia Complications N Orthotics N Head Injury/Concussion N Congenital Anomalies N Braxton Bite N Chronic Kidney Disease N Endometriosis N Liver Disease N Schizophrenia N Dialysis N Speech Delay N Chronic Obstructive Pulmonary Disease N Parkinson's Disease N Thyroid Problems N GI Problems N Developmental Delay N Anemia N Multiple Sclerosis N Immune System Disorder N Colon Polyps N Heart Attack ([place]) N Diabetes N Cardiomyopathy N Blood Transfusions N Heart Problems/Murmur N Eye Trauma N Congestive Heart Failure (CHF) N Valvular Heart Disease N Hyperlipidemia N Double Vision N Abuse/Domestic Violence N Hepatitis B N Lupus N Epilepsy/Seizures N Reflux/GERD N Aneurysm N Heart Disease N Bronchitis N Pre-Eclampsia N Hypertension Y Heart Failure N Other N Gout N High Blood Pressure Y Atrial Fibrillation N Kidney Stones N Head Trauma/Injury N Congenital Heart Disease N Spine Problems N Gastrointestinal Disease N Lung Mass N Sinusitis N Obstructive Sleep Apnea N Muscle, Joint, or Bone Problems N Autoimmune disease N Vision or Eye Problems N Arthritis Y Blood Clot N Cancer Y Seasonal allergies N Leg or Foot Ulcers N Raynaud's Disease N Aortic Aneurysm N Arrhythmia N Headaches N Heart Problems N Ambloypia N Ear or Hearing Problems N Hyperparathyroidism N Migraines N Artificial Joints N Kidney or Bladder Problems N NSAID Use N Encephalitis N PTSD N Ulcers N Prostate Hypertrophy N Bleeding Disorder N AIDS/HIV N Urinary Tract Infection N Back Problems N Allergies N Atrial Flutter N GERD/Reflux N Hepatitis N Autism Spectrum Disorder (ASD) N Breast Cancer N Hernia N Hypothyroidism N Breast Problem N Genitourinary Disease N Deep Vein Thrombosis N Varicose Veins N Cystic Fibrosis N Hearing Loss N Developmental Problems N Carotid Disease N Vitamin D Deficiency N ADHD N Bladder or Kidney Problems N High Cholesterol N [place] N Valvular Abnormalities N Psychiatric/Mental Health Condition N Organ Transplant N Foot Deformity N Allergies/Hayfever N Dyslipidemia N Hyponatremia N Diabetic Eye Disease N Osteoporosis/Osteopenia N Back Pain N Proteinuria N Mental Illness N Neurological Problems N Ovarian Cancer N Bedwetting N Seizures/Epilepsy N Kidney Failure N Ocular trauma N Diverticulitis N Dementia N Sleep Apnea N Mental Problems N Warfarin Management N Osteoporosis Y Gynecological History Statement/Question Response Abnormal Pap N STIs/STDs N Current Control Method Menopause Most Recent Mammogram 02/25/2024 Age at First Child 21 If Post Menopausal, Age at Menopause 41 Sexually Active? N Menses Monthly N Date of Last Pap Smear 08/10/2014 Sexual Problems? N LMP Unknown Obstetrics History GPAL:G 3 P 2 0 1 1 Type Value Multiple Births 0 Full Term 2 Induced 0 Spontaneous 1 Premature 0 Living 1 Ectopics 0 Total 3 Immunizations Vaccine Type Date Status Note Provider Nam e and Address Organization Details Recorded Time COVID-19, mRNA, LNP-S, PF, 100 mcg/0.5mL dose or 50 mcg/0.25mL dose 09/22/2020 completed Latrice Wallace LPN null, [place] [facility] 09/24/2020 11:09:42 COVID-19, mRNA, LNP-S, PF, 100 mcg/0.5mL dose or 50 mcg/0.25mL dose 10/20/2020 completed Anali Castro MA null, [place] [facility] 10/23/2020 13:01:03 Past Encounters Encounter ID Performer Location Encounter Start Date Encounter Closed Date Diagnosis/Indication Diagnosis SNOMED-CT Code Diagnosis ICD10 Code Diagnosis Note [id number] MD Terrence Alba ([facility] 122) [address] [place] [address] 08/10/2014 08:54:33 08/10/2014 11:01:17 Screening mammography 99572838 Gynecologi c examination [id number] Codi Barbosa [facility] Terrence Cazares ([facility] 122) [place] [address] 08/22/2015 08:59:45 08/22/2015 09:51:25 Screening mammography 94323651 Z12.31 Gynecologi c examination 57267905 Z01.419 [id number] DO Terrence Chen ([facility] [address]) [place] [address] 03/22/2016 11:18:54 03/22/2016 17:26:16 Dysuria 86891177 R30.0 Midline cystocele 705853 003 N81.11 [id number] Codi Barbosa [facility] Terrence Cazares ([facility] [address]) [address] [place] [address] 08/27/2016 08:47:13 08/27/2016 12:16:07 Gynecologic examination 05938247 Z01.419 Screening mammography 24 800552 Z12.31 [id number] MD Terrence Warner ([facility] 122) [address] [facility] [place] [address] 10/01/2017 09:38:34 10/02/2017 15:33:06 Gynecologic examination 73701757 Z01.419 CBE and pelvic exam performed. Screening mammography 24 223312 Z12.31 Postmenopausal state 764 [address] Z78.0 [id number] MD Terrence Warner ([facility]) [address] [facility] [place] [id number]|2025-01-07 08:10:00|2025-01-07 08:10:00|XMS_ITS|BKG DAEMON|External Medical Summaries|[id number]|" Encounter Summary Created on: January 07, 2025 Regina Weaver : 1945 Sex: Female Author Organization [facility] Address [address] [place] [address] Phone Care Team Providers Care Disc Pad Plate Filler Name Role Phone Arsalan Baker MD Primary Care Provider [phone] Reason for Visit * Reason Comments Medication Refill Encounter Details Date Type Department Care Team (Late st Contact Info) Description 06/09/2023 Refill [facility] - Internal Medicine - [place] [address] [place] [id number] Arsalan Baker MD [address] [place] [address] Medication Refill Social History Tobacco Use Types Packs/Day Years Used Date Smoking Tobacco: Never Passive Smoke Exposure: Never Smokeless Tobacco: Never Alcohol Use Standard Drinks/Week Comments Never 0 (1 standard drink = 0.6 oz pur e alcohol) PHQ-2 Answer Date Recorded Total Score - Questions 1-9 0 11/24 Sexually Active Control Partners Comments Yes Comments No Sex and Gender Information Value Date Recorded Sex Assigned at Not on file Legal Sex Female 11:30 PM CDT Gender Identity Not on file Sexual Orientation Not on file documented as of this encounter Miscellaneous Notes * Telephone Encounter - Ellen Mascorro RN - 06/09/2023 8:20 AM CDT Medication failed the protocol, provider to review and approve the medication order if appropriate. Requested Prescriptions Pending Prescriptions Disp Refills furosemide (LASIX) 40 MG Tablet [Pharmacy Med Name: FUROSEMIDE 40MG TABLETS] 90 Tablet 1 Sig: Take 1 Tablet by mouth daily. Diuretics Protocol Failed - 06/09/2023 5:47 AM Failed - Serum potassium on record in past 12 months POTASSIUM Date Value Ref Range Status 12/04/2021 4.9 3.5 - 5.1 mmol/L Final Failed - Serum sodium on record in past 12 months SODIUM Date Value Ref Range Status 12/04/2021 135 (L) 136 - 144 mmol/L Final Failed - GFR on record in past 12 months GFR, EST. NONAFRICAN Date Value Ref Range Status 12/04/2021 57 (L) >=60 Final Passed - Blood pressure on record in past 12 months Clinician-entered: BP Readings from Last 3 Encounters: 12/16/22 128/66 06/17/22 140/76 12/12/21 138/76 Patient-entered: No data recorded Passed - Visit with relevant provider in past 12 months or upcoming 90 days Recent Visits Date Type Provider Dept 12/16/22 Office Visit Arsalan Baker MD [facility] [place] 06/17/22 Office Visit Arsalan Baker MD [facility] [place] Showing recent visits within past 365 days and meeting all other requirements Future Appointments Date Type Provider Dept 06/16/23 Appointment Arsalan Baker MD [facility] Showing future appointments within next 90 days and meeting all other requirements lisinopril (PRINIVIL, ZESTRIL) 20 MG Tablet [Pharmacy Med Name: LISINOPRIL 20MG TABLETS] 90 Tablet 1 Sig: Take 1 Tablet by mouth daily. KRANTHI Inhibitors Protocol Failed - 06/09/2023 5:47 AM Failed - Serum potassium on record in past 12 months POTASSIUM Date Value Ref Range Status 12/04/2021 4.9 3.5 - 5.1 mmol/L Final Failed - GFR on record in past 12 months GFR, EST. NONAFRICAN Date Value Ref Range Status 12/04/2021 57 (L) >=60 Final Passed - Blood pressure on record in past 12 months Clinician-entered: BP Readings from Last 3 Encounters: 12/16/22 128/66 06/17/22 140/76 12/12/21 138/76 Patient-entered: No data recorded Passed - Visit with relevant provider in past 12 months or upcoming 90 days Recent Visits Date Type Provider Dept 12/16/22 Office Visit Arsalan Baker MD [facility] [place] 06/17/22 Office Visit Arsalan Baker MD [facility] [place] Showing recent visits within past 365 days and meeting all other requirements Future Appointments Date Type Provider Dept 06/16/23 Appointment Arsalan Baker MD [facility] [place] Showing future appointments within next 90 days and meeting all other requirements famotidine (PEPCID) 20 MG Tablet [Pharmacy Med Name: FAMOTIDINE 20MG TABLETS] 90 Tablet 1 Sig: Take 1 Tablet by mouth every evening. H2 Antagonists Protocol Passed - 06/09/2023 5:47 AM Passed - Visit with relevant provider in past 12 months or upcoming 90 days Recent Visits Date Type Provider Dept 12/16/22 Office Visit Arsalan Baker MD [facility] [place] 06/17/22 Office Visit Arsalan Baker MD [facility] [place] Showing recent visits within past 365 days and meeting all other requirements Future Appointments Date Type Provider Dept 06/16/23 Appointment Arsalan Baker MD [facility] [place] Showing future appointments within next 90 days and meeting all other requirements documented in this encounter Plan of Treatment Upcoming Encounters Date Type Department Care Team (Late st Contact Info) Description 01/18/2025 8:45 AM CDT Office Visit [facility] - [facility] - [place] [address] [place] [address] Arsalan Baker MD [address] [place] [address] documented as of this encounter Visit Diagnoses Diagnosis Essential hypertension, benign documented in this encounter Additional Health Concerns Assessment Noted Time PHQ-9 Depression Total Score: 0 12/12/19 21 8:00 AM CDT documented as of this encounter Care Teams Disc Pad Plate Filler Relationship Specialty Start Date End Date Arsalan Baker MD [address] [place] [address] PCP - General Internal Medicine 09/26/15 documented as of this encounter "
[2025-01-07 08:19] VITALS: BP 137/57; PULSE 62; RESP 16; TEMP 36.4; O2SAT 98
--- NOTE | 2025-01-07 08:42 | ED.SKABFB ---
HPI - Skin/Abscess/Foreign Bdy General Chief complaint: Skin/Abscess/Foreign Body Stated complaint: Rash Time Seen by Provider: 01/07/25 08:12 Source: patient and RN notes reviewed Mode of arrival: ambulatory Limitations: no limitations History of Present Illness HPI narrative: 79-year-old female presents Express Care complaining of a rash on her arms for 1 week. 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 Patient reports having a pruritic rash that started on her left arm and now spread to her right arm. Patient is a uses an [id number] treatment that she is unsure what is called without relief. Patient denies any upper respiratory symptoms, fevers, body aches, chills, or difficulty breathing. Patient has had poison saira before in the past. Related Data Home Medications Medication Instructions Recorded Confirmed Last Taken Type furosemide 40 mg tablet 40 mg PO DAILY 09/01/20 09/21/23 Unknown History lisinopril 20 mg tablet 20 mg PO DAILY 09/01/20 09/21/23 Unknown History famotidine 20 mg tablet 20 mg PO DAILY 09/21/23 09/21/23 Unknown History Allergies Allergy/AdvReac Type Severity Reaction Status Date / Time No Known Drug Allergies Allergy Unknown Unknown Verified 09/21/23 09:00 Review of Systems Review of Systems: CONSTITUTIONAL: Denies fever, chills, or sweats. EYES: Denies visual changes, redness, or discharge. ENT: Denies rhinorrhea, congestion, sore throat, or otalgia. CARDIOVASCULAR: Denies chest pain, palpitations, or edema. RESPIRATORY: Denies cough or dyspnea. GASTROINTESTINAL: Denies abdominal pain, nausea, vomiting, or diarrhea. GENITOURINARY: Denies dysuria or hematuria. SKIN: Positive for rash and itching. MUSCULOSKELETAL: Denies back pain, joint pain, or myalgia. NEUROLOGIC: Denies headache, numbness, or weakness. PSYCHIATRIC: Denies anxiety or depression. All other systems reviewed are negative, except as documented in HPI. [facility], [facility] Past Medical History Medical History Arthritis Hypertension Surgical History Surgical History Hx of cholecystectomy History of gastric bypass History of appendectomy History of bilateral knee replacement Family History Family History Mother Breast cancer Social History Social History Smoking status: Never smoker Substance use: never Living arrangements: with family Gender identity (if verbalized by the patient): Female Comments At the time of my signature, I reviewed and agree with the nursing past medical, surgical, social, and family history. There is no relevant family history pertinent to the patient complaint. Exam Narrative: GENERAL: This is a well-nourished, well-developed adult, in no apparent distress. They are non ill-appearing, nontoxic appearing. HEAD: normocephalic, atraumatic. EYES: Sclera clear/white. Conjunctiva normal. Vision is grossly intact. Extraocular movements intact EARS: External ears normal, Hearing grossly intact. NOSE: External nose normal THROAT: Mucous membranes moist, NECK: Neck supple CARDIOVASCULAR: Regular rate and rhythm RESPIRATORY: Respiratory rate normal, respiratory effort nonlabored, no respiratory distress SKIN: Erythematous pruritic papular rash throughout the patient's left and right arm with a few small vesicles. Nontender to palpation. No surrounding cellulitis, induration, discharge, or area of fluctuance. NEURO: awake, alert, and oriented to person, place and time. There were no obvious focal neurologic abnormalities. EXTREMITIES: No joint tenderness, effusion, or edema noted. BACK: Nontender without deformity. Course Course Emergency Course: Portions of this record may have been created with voice recognition software Level of Care: Express Care Visit Vital Signs Vital signs: Vital Signs Temperature 97.6 F 01/07/25 08:19 Pulse Rate 62 01/07/25 08:19 Respiratory Rate 16 01/07/25 08:19 Blood Pressure 137/57 L 01/07/25 08:19 Pulse Oximetry 98 01/07/25 08:19 Oxygen Delivery Room Air 01/07/25 08:19 Temperature 97.6 F 01/07/25 08:19 Pulse Rate 62 01/07/25 08:19 Respiratory Rate 16 01/07/25 08:19 Blood Pressure 137/57 L 01/07/25 08:19 Pulse Oximetry 98 01/07/25 08:19 Oxygen Delivery Room Air 01/07/25 08:19 Reviewed MDM - Skin/Abscess/Foreign Bdy MDM Narrative Medical decision making narrative: Patient likely has a contact dermatitis from poison saira exposure. Will give her prednisone taper. Recommend [id number] Tecnu body wash as well. Discussed physical exam findings. Advised supportive measures and signs/symptoms to go to the ER. Pt is appropriate for outpt treatment and f/u. Differential Diagnosis Differential diagnosis: Likely allergic reaction to drug, cellulitis and contact dermatitis Critical Care Time Critical Care Time Critical Care Time: No Discharge Plan Discharge Clinical Impression: Poison saira dermatitis Patient Disposition: Home Condition: Stable Instructions: Poison Saira (ED) Additional Instructions: Take steroids as directed. You may use Tecnu [id number]-[id number] shampoo to wash the poison saira off her skin. Follow instructions on the bottle. You can purchase this at [employer]. Follow-up primary care provider 1 week. If your symptoms worsen, you developed fevers, breathing problems, worsening redness and swelling, or any other concerns please go to the ER. Patient Language: Namibian Prescriptions: New prednisone 10 mg tablet See Taper PO DIRECTED Qty: 45 0RF Taper: Prednisone Taper from 60 mg;12 days 60 mg DAILY for 2 Days and 0 Hour 50 mg DAILY for 2 Days and 0 Hour 40 mg DAILY for 2 Days and 0 Hour 30 mg DAILY for 2 Days and 0 Hour 20 mg DAILY for 3 Days and 0 Hour 10 mg DAILY for 3 Days and 0 Hour Rx Instructions: see taper instructions No Action furosemide 40 mg Tablet 40 mg PO DAILY lisinopril 20 mg Tablet 20 mg PO DAILY fluticasone propionate [Flonase Allergy Relief] 50 mcg/actuation spray,suspension 1 spray intranasal DAILY Qty: 9.9 0RF Rx Instructions: administer into each nostril famotidine 20 mg tablet 20 mg PO DAILY Follow-up/Referrals: Samuel,Arsalan Collier MD [Primary Care Provider] - Time of Disposition: 08:36
== END 2025-01-07 08:47 | disposition home or self-care (01) ==
PROVIDERS: PCP Internal Medicine
DX: L23.7 Allergic contact dermatitis due to plants, except food (principal); I10 Essential (primary) hypertension; M19.90 Unspecified osteoarthritis, unspecified site; Z98.84 Bariatric surgery status; Z96.653 Presence of artificial knee joint, bilateral
CPT/HCPCS: 99213; G0463